=== PATIENT | female | born 1955 | race African-American/Black ===

== ENCOUNTER → 2019-12-14 | Outpatient (CLI) | payer SELFPAY ==
[~2019-12-14] VITALS: Ht 159.1 cm; Wt 56.8 kg
[~2019-12-14] MED LIST: ALDACTONE 25MG25 M1 PO; GLUCOPHAGE500 MG/TAB PO; LASIX 20MG TABL20 MG PO; NO HOME MEDICATIONS
--- NOTE | 2019-12-14 12:22 | NUR ---
after talking with the interpreter for the deaf,the son after talking with his mom, the patient, have decided to speak to dr hawk about doing the treadmill first.
== END ==
LOC: COL.CARD 12-02 10:45
DX: R07.89 Other chest pain (principal); I50.9 Heart failure, unspecified

== ENCOUNTER 2020-01-27 10:59 | Day surgery (SDC) | payer SELFPAY ==
[~2020-01-27] VITALS: Ht 159.3 cm; Wt 58.0 kg
[2020-01-27 11:45] VITALS: BP 128/85; PULSE 71; TEMP 98
--- NOTE | 2020-01-27 12:00 | NUR ---
DR PALMER HERE TO SEE PT AND SON, PROCEDURE WAS CANCELLED, SEE ADMISSION NOTE
== END 2020-01-27 12:00 | disposition home or self-care (01) ==
LOC: COL.CAR 10:59
DX: R07.89 Other chest pain (principal); R94.39 Abnormal result of other cardiovascular function study; Z79.82 Long term (current) use of aspirin; Z79.899 Other long term (current) drug therapy; Z79.51 Long term (current) use of inhaled steroids; I11.0 Hypertensive heart disease with heart failure; I50.9 Heart failure, unspecified; Z53.8 Procedure and treatment not carried out for other reasons

== ENCOUNTER 2020-07-23 19:20 | Inpatient (IN) | payer SELFPAY ==
[~2020-07-23] VITALS: Ht 147.3 cm; Wt 58.0 kg
--- NOTE | 2020-07-23 19:50 | NUR ---
PATIENT ARRIVED TO ROOM 341 [facility]IA [facility] WITH EMS STAFF X2. PATIENT NONENGLISH SPEAKING WITH NO FAMILY MEMBERS WITH PATIENT AT TIME OF ARRIVAL TO HOSP ROOM. OXYGEN PER NC AT 3L PER EMS REPORT. OBSERVED YANEZ TO DD IN PLACE AND DRAINING. PERIPHERAL LINE TO LAC IN PLACE AND CENTRAL LINE (TRIPLE LUMEN RIJ) IN PLACE. SKIN VERY WARM TO TOUCH, DENIES CHILLING.
[2020-07-23 20:00] VITALS: BP 138/82; PULSE 111; TEMP 98
--- NOTE | 2020-07-23 20:05 | NUR ---
SON PRESENT IN ROOM AT THIS, ABLE TO TRANSLATE FOR PATIENT AT THIS TIME. PATIENT WITH NO COMPLAINTS REPORTED TRANSLATED VIA SON AT THIS TIME.
[2020-07-23] MEDS ORDERED: DULCOLAX STOOL100 MG PO (20:15)
[2020-07-23] MEDS ORDERED: HEPARIN SOD5000 U/ML SQ (20:16)
[2020-07-23] MEDS ORDERED: LASIX 40MG40 MG/4 ML IJ (20:16)
[2020-07-23] MEDS ORDERED: LEVAQUIN 7750 MG/151 IV (20:17)
[2020-07-23] MEDS ORDERED: TYLENOL 325MG325 MG PO (20:19)
[2020-07-23] MEDS ORDERED: REGLAN 10M10 MG/2 ML IV (20:19)
[2020-07-23] MEDS ORDERED: NATURAL SENNA8.6 MG PO (20:20)
[2020-07-23] MEDS ORDERED: ALBUTEROL0.83 MG/ML IH (20:21)
[2020-07-23 21:06] VITALS: TEMP 98.3
[2020-07-23 21:55] LABS: BASO % 0.2 % (0.0-2.0); EOS # 0.2 (0.0-0.7); EOS % 2.3 % (0-4.0); GRAN # 7.3 (1.4-6.5); GRAN % 77.6 % (42.2-75.2); HEMATOCRIT 34.6 % (37.0-47.0); HEMOGLOBIN 11.2 g/dl (12.5-16.0); LYMPH # 0.9 (1.2-3.4); LYMPH % 9.9 % (20.0-51.0); MEAN CELL VOLUME 92 fl (80.0-100.0); MEAN CORPUSCULAR HEMOGLOBIN 30 pg (27.0-31.0); MEAN CORPUSCULAR HGB CONC 32 g/dl (33.0-37.0); MEAN PLATELET VOLUME 10.1 fl (7.4-10.4); MONO # 0.9 (0.1-0.6); MONO % 9.4 % (1.7-9.3); PLATELET COUNT 284 K/mm3 (130-400); RED BLOOD COUNT 3.77 M/mm3 (4.10-5.30); REDCELL DISTRIBUTION WIDTH-CV 13.5 % (11.5-14.5)
[2020-07-23 22:09] LABS: CALCIUM 9.2 mg/dL (8.4-10.2); CREATININE, serum 0.4 (0.52-1.25); POTASSIUM 3.8 mmol/L (3.4-5.0)
[2020-07-24] VITALS (7 sets, daily range): BP systolic 114–157; BP diastolic 62–94; PULSE 64–123; TEMP 97.8–98.7
--- NOTE | 2020-07-24 02:04 | NUR ---
PATIENT INDICATED NEEDING TO GO TO BATHROOM, PUT ON BED SANTANA WITH PATIENT WANTING UP ON BSC. UP TO BSC BUT NO FLATUS OR STOOL PASSED. PATIENT PUT BACK TO BED WITH STILL FEELING "FULL".
[2020-07-24 05:48] LABS: ARTERIAL BLD GAS O2 SATURATION 95.4 % (92-100); ARTERIAL BLOOD GAS BASE EXCESS 4.5 (-2-2); ARTERIAL BLOOD GAS HCO3 28.7 meq/L (22-26); ARTERIAL BLOOD GAS PCO2 41.4 mmHg (35-45); ARTERIAL BLOOD GAS PO2 77.3 mmHg (80-100); ARTERIAL BLOOD GAS pH 7.46 (7.35-7.45)
[2020-07-24 06:51] LABS: BASO % 0.2 % (0.0-2.0); EOS # 0.2 (0.0-0.7); EOS % 2.1 % (0-4.0); GRAN # 6.6 (1.4-6.5); GRAN % 75.5 % (42.2-75.2); HEMOGLOBIN 10.9 g/dl (12.5-16.0); LYMPH % 11.9 % (20.0-51.0); MEAN CELL VOLUME 94 fl (80.0-100.0); MEAN CORPUSCULAR HEMOGLOBIN 30 pg (27.0-31.0); MEAN CORPUSCULAR HGB CONC 32 g/dl (33.0-37.0); MEAN PLATELET VOLUME 11.4 fl (7.4-10.4); MONO # 0.8 (0.1-0.6); MONO % 9.4 % (1.7-9.3); PLATELET COUNT 276 K/mm3 (130-400); RED BLOOD COUNT 3.61 M/mm3 (4.10-5.30); REDCELL DISTRIBUTION WIDTH-CV 13.6 % (11.5-14.5)
[2020-07-24 06:55] LABS: CREATININE, serum 0.41 (0.52-1.25); POTASSIUM 3.6 mmol/L (3.4-5.0)
[2020-07-24 06:57] LABS: HEMATOCRIT 33.8 % (37.0-47.0)
--- NOTE | 2020-07-24 07:21 | NUR ---
CHANGE OF SHIFT REPORT GIVEN TO DAY SHIFT NURSE, GURMEET SAMUELS.
--- NOTE | 2020-07-24 08:49 | NUR ---
CALLED AND NOTIFIED OF CARDIOLOGY CONSULT FOR NEW CHF, POSSIBLE EXACERBATION.
--- NOTE | 2020-07-24 10:57 | NUR ---
PATIENT SHIFT ASSESSMENT COMPLETE. MORNING MEDICATIONS ADMINISTERED. PATIENT DENIES COMPLAINTS OF PAIN AT THIS TIME. YANEZ CATHETER TO DEPENDENT DRAINAGE. SON PRESENT IN THE ROOM AND TRANSLATING FOR HIS MOTHER. CALL LIGHT WITHIN REACH. NO ADDITIONAL NEEDS AT THIS TIME.
--- NOTE | 2020-07-24 12:47 | NUR ---
First visit from the recruiting operations consultant. prayed with patient. No other needs right now.
--- NOTE | 2020-07-24 15:48 | NUR ---
PATIENT'S SON REPORTING THAT THE PATIENT STATES THAT SHE HAS PELVIC PAIN. THIS NURSE SPOKE WITH ROBERTO CROW AND SPA. RUIZ CORLEY TO COLLECT A UA.
--- NOTE | 2020-07-24 16:30 | NUR ---
PATIENT AND SON EDUCATED ON URINE COLLECTION TO TEST FOR INFECTION. SON ASKING ABOUT THE NEED FOR THE YANEZ CATHETER, EDUCATED ON THE NEED FOR ACCURATE INTAKE AND OUTPUT DUE TO THE PATIENT TAKING LASIX AND HER DIAGNOSIS. UA TAKEN TO LAB.
[2020-07-24 16:41] LABS: COLLECTION METHOD IN
--- NOTE | 2020-07-24 17:04 | NUR ---
Senior Reservations Agent attended clinical rounds with the team then met with patient and patient's son, Yasmani (ph#[phone]) to discuss discharge planning. Patient lives in [place] with her son and sees Chhaya Vanegas at [facility] for primary care. Patient also obtains medications from [facility]. Patient does not have any DME and is normally independent with ADLS. Patient does not normally wear oxygen but currently requires it. Patient plans to return home at discharge and is currently self pay. PT/OT have been ordered for patient. Discharge Plan: Home with son
[2020-07-24 17:38] LABS: MUCOUS Present /lpf; PH 5 (5-8); URINE APPEARANCE Hazy; URINE BACTERIA None Seen /hpf; URINE BILIRUBIN Negative (NEGATIVE); URINE BLOOD 3+ (NEGATIVE); URINE COLOR Amber; URINE GLUCOSE Negative (NEGATIVE); URINE KETONE Negative (NEGATIVE); URINE LEUKOCYTE ESTERASE Negative (NEGATIVE); URINE NITRATE Negative (NEGATIVE); URINE PROTEIN(semi-quant) 2+ (NEGATIVE); URINE RBC >50 /hpf; URINE UROBILINOGEN Negative (NEGATIVE)
[2020-07-24 17:41] LABS: SQUAMOUS EPITHELIAL 0-2 /hpf
[2020-07-25 03:36] VITALS: BP 121/60; PULSE 60; TEMP 97.9
--- NOTE | 2020-07-25 04:52 | NUR ---
PATIENT RESTED QUIETLY IN BED THROUGHOUT THE NIGHT. NO NEW ISSUES NOTED OR REPORTED BY PATIENT.
[2020-07-25 06:55] LABS: BASO % 0.6 % (0.0-2.0); EOS # 0.4 (0.0-0.7); EOS % 5.8 % (0-4.0); GRAN # 4.5 (1.4-6.5); GRAN % 64.9 % (42.2-75.2); HEMOGLOBIN 10.1 g/dl (12.5-16.0); LYMPH # 1.2 (1.2-3.4); LYMPH % 17.1 % (20.0-51.0); MEAN CELL VOLUME 92 fl (80.0-100.0); MEAN CORPUSCULAR HEMOGLOBIN 30 pg (27.0-31.0); MEAN CORPUSCULAR HGB CONC 32 g/dl (33.0-37.0); MEAN PLATELET VOLUME 11.4 fl (7.4-10.4); MONO # 0.8 (0.1-0.6); PLATELET COUNT 211 K/mm3 (130-400); REDCELL DISTRIBUTION WIDTH-CV 13.4 % (11.5-14.5)
[2020-07-25 06:57] LABS: HEMATOCRIT 31.4 % (37.0-47.0)
[2020-07-25 07:08] LABS: ALBUMIN 3.5 gm/dL (3.5-5.0); BILIRUBIN,TOTAL 1.1 mg/dL (0.0-1.0); CREATININE, serum 0.42 (0.52-1.25); MAGNESIUM 1.6 mg/dL (1.6-2.3); POTASSIUM 3.4 mmol/L (3.4-5.0); TOTAL PROTEIN 6.5 gm/dL (6.4-8.2)
[2020-07-25 08:00] VITALS: BP 113/58; PULSE 88; TEMP 98.6
[2020-07-25 12:00] VITALS: BP 120/77; PULSE 79; TEMP 98.2
[2020-07-25 16:29] VITALS: BP 112/62; PULSE 80; TEMP 98.2
--- NOTE | 2020-07-25 16:44 | NUR ---
Core Feeder spoke with PT, Nino who advised patient will need a front wheeled walker. SW obtained signed order for FWW then emailed Andra, Financial Counselor about completing a Financial Assistance Application for patient.
--- NOTE | 2020-07-25 18:30 | NUR ---
Patient has been doing well today. She sat up in the chair most the afternoon. Denies nausea and pain. Urine output is better today. Removed her oxygen this am and was able to leave it off. She is at 94-97% on room air. She walked twice in the hallways. No bowel movement today but her son said she had one in the night. She ate most her meals today. No other changes at this time. Call light within reach. Patient is hoping to discharge home tomorrow.
[2020-07-25 19:27] VITALS: BP 122/56; PULSE 88; TEMP 98
[2020-07-25 23:42] VITALS: BP 116/67; PULSE 83; TEMP 97.4
[2020-07-26 04:05] VITALS: BP 120/65; PULSE 89; TEMP 98
--- NOTE | 2020-07-26 05:46 | NUR ---
PATIENT RESTED QUIETLY IN BED THROUGHOUT THE NIGHT. NO NEW ISSUES NOTED OR REPORTED BY PATIENT. PATIENT BATHED THIS SHIFT.
[2020-07-26 06:57] VITALS: BP 110/66; PULSE 84; TEMP 98.1
[2020-07-26 07:04] LABS: HEMOGLOBIN 10.5 g/dl (12.5-16.0); MEAN CELL VOLUME 93 fl (80.0-100.0); MEAN CORPUSCULAR HEMOGLOBIN 30 pg (27.0-31.0); MEAN CORPUSCULAR HGB CONC 33 g/dl (33.0-37.0); MEAN PLATELET VOLUME 11.1 fl (7.4-10.4); PLATELET COUNT 272 K/mm3 (130-400); RED BLOOD COUNT 3.45 M/mm3 (4.10-5.30); REDCELL DISTRIBUTION WIDTH-CV 13.5 % (11.5-14.5)
[2020-07-26 07:09] LABS: HEMATOCRIT 32.1 % (37.0-47.0)
[2020-07-26 07:39] LABS: CALCIUM 9.2 mg/dL (8.4-10.2); CREATININE, serum 0.42 (0.52-1.25); MAGNESIUM 1.5 mg/dL (1.6-2.3); POTASSIUM 3.3 mmol/L (3.4-5.0)
[2020-07-26 08:33] LABS: BAND 6 % (0-10); EOSINOPHIL 6 % (0-4); LYMPHOCYTE 33 % (20.0-51.0); NEUTROPHILS 48 % (42.0-75.2); PLATELET ESTIMATE NORMAL (NORMAL)
--- NOTE | 2020-07-26 10:20 | NUR ---
Patient should be discharging today. Dr Alvarenga spoke with patient and son. Will discontinued Right IJ after magnesioum finishes. Desai catheter discontinued as ordered. 15ml removed desai catheter balloon. Celia-care provided. Stat-lock removed from leg. Patient tolerated without any issues. Patient denies pain and nausea. No other changes at this time. Call light within reach.
[2020-07-26] MEDS ORDERED: LEVAQUIN 750MG750 M1 PO (10:31)
[2020-07-26] MEDS ORDERED: LIPITOR 40MG TA40 MG PO (10:32)
[2020-07-26] MEDS ORDERED: PROAIR HFA0.09 MG/AC IH (10:32)
[2020-07-26] MEDS ORDERED: LOPRESSOR 225 MG/TAB PO (10:32)
[2020-07-26] MEDS ORDERED: ASPIRIN 81M81 MG/TA2 PO (10:33)
[2020-07-26] MEDS ORDERED: ZESTRIL 5MG5 MG PO (10:33)
[2020-07-26] MEDS ORDERED: LASIX 40MG TABL40 MG PO (10:34)
[2020-07-26] MEDS ORDERED: MAG-OX 400400 MG/TAB PO (10:34)
[2020-07-26 11:57] VITALS: BP 102/63; PULSE 72; TEMP 97.9
--- NOTE | 2020-07-26 13:30 | NUR ---
Patients son wanted the medications sent to [facility] pharmacy instead of [facility]. Explained she was getting several medications and discussed if was able to afford picking them up since she does not have insurance. He stated yes. He stated that she was starting to have pain with her cough and that she keeps coughing. Explained that is normal for her diagnosis to have a cough. He than stated that patient is having nausea/heartburn. Discussed if this is new, he stated no. Spoke with Mary Ellen MEJIA and she was going to see about sending some medication to the pharmacy. Patient has voided without issues since desai discontinued. She had a large bowel movement. She denies pain at this time. No other changes at this time. Call light within reach.
[2020-07-26] MEDS ORDERED: TESSALON P100 MG/CAP PO (14:22)
[2020-07-26] MEDS ORDERED: ZOFRAN ODT4 MG PO (14:36)
--- NOTE | 2020-07-26 14:40 | NUR ---
Right IJ central line discontinued. Removed stitches from line. Removed line and held pressure for 10mins. Placed dressing to site, dime sized amound of drainage to gauze. Explained to son that patient has to lay flat for 30mins. He verbalized understanding. Will discharge after flat time is completed. No other changes at this time. CAll light within reach.
--- NOTE | 2020-07-26 15:25 | NUR ---
Discharge instructions discussed with patient and son. No questions verbalized. Explained all the medications sent to [facility]. Patients son said he did not realized there were so many to pickling drum operator. He has a goodrx coupon to take with him. Explained when follow up appointments are. Copies of discharge instructions given to patient. Explained to leave the dressing on to neck for 24 hours. All belongings packed up by son. Patient is getting dressed and will call when ready for discharge.
--- NOTE | 2020-07-26 16:20 | NUR ---
Water Project Engineer attended clinical rounds with the team and patient's son, Yasmani is at bedside. Patient to discharge home today. Patient's son requested medications be sent to [facility] in [place]. VIRIDIANA provided Good RX card to patient to assist with cost of medications. VIRIDIANA collaborated with Chhaya SOMMERS who advised patient will not need oxygen at discharge. VIRIDIANA faxed order for FWW and referral to [facility]. VIRIDIANA provided Financial Assistance Application which patient's son helped complete. VIRIDIANA provided completed FAA to Andra Financial Counselor. ANGELA delivered FWW up to patient's room prior to her discharge. Patient will return home with her son today. During rounds, patient advised she is from [place] and will return there when she can travel. Patient's son advised she comes here often to visit him.
== END 2020-07-26 15:55 | disposition home or self-care (01) | DRG 871 ==
LOC: SURG 19:20
PROVIDERS: Student in an Organized Health Care Education/Training Program; ADMIT Internal Medicine
DX: A41.9 Sepsis, unspecified organism (principal); J18.9 Pneumonia, unspecified organism; J96.01 Acute respiratory failure with hypoxia; J96.02 Acute respiratory failure with hypercapnia; I50.23 Acute on chronic systolic (congestive) heart failure; R65.20 Severe sepsis without septic shock; K59.00 Constipation, unspecified; I11.0 Hypertensive heart disease with heart failure; D64.9 Anemia, unspecified; R10.2 Pelvic and perineal pain; I08.1 Rheumatic disorders of both mitral and tricuspid valves; E87.6 Hypokalemia; E83.42 Hypomagnesemia; E11.65 Type 2 diabetes mellitus with hyperglycemia
CPT/HCPCS: 99232-AI; 99233-AI; 99239; J1644; J1815; J1940; J1956; J3475; Q9967